=== PATIENT | male | born 1950 | race Caucasian/White ===

== ENCOUNTER → 2018-12-19 10:12 | Outpatient (CLI) | payer MEDICARE, OTHER, SELFPAY ==
--- NOTE | 2018-12-19 | DI.NM.S_ITS ---
PROCEDURE: NM BONE SCAN WHOLE BODY RADIOPHARMACEUTICAL: 19.9 mCi Tc-99m MDP IV. INDICATIONS: prostate cancer TECHNIQUE: Delayed whole-body scintigrams were obtained approximately 3-4 hours after intravenous injection of radiotracer. Anterior and posterior views were acquired from vertex to feet. Additional left and right oblique views of the pelvis were obtained. COMPARISON: [facility], CT, CT CHEST ABD PEL W CON, 12/19/2018, 11:30. FINDINGS: There is increased uptake in the left anterolateral aspect of the ninth rib, possibly posttraumatic. There are foci of increased uptake in cervical, thoracic and lumbar spine with distribution indistinguishable from degenerative disc and facet disease; early metastasis to spine could be obscured by degenerative changes. No lesions are identified in skull, sternum, clavicles, scapulae, bony pelvis, and visualized shafts of the long bones. There are foci of increased periarticular activity involving shoulders, sternoclavicular joints, elbows, wrists, hands, hips, SI joints, ankles and feet, compatible with degenerative/arthritic changes. IMPRESSION: 1. No definitive scintigraphic findings to suggest osseous metastasis. 2. Increased uptake in the left ninth rib anterolaterally is most likely due to trauma. Recommend clinical correlation and followup x-ray if clinically indicated. 3. Foci of increased uptake in cervical, thoracic and lumbar spine with distribution indistinguishable from degenerative disc and facet disease. Recommend clinical and radiographic correlation. Dictated by: Giana Steward M.D. on 12/20/2018 at 12:07 Approved by: Giana Steward M.D. on 12/20/2018 at 13:44
--- NOTE | 2018-12-19 | DI.CT.S_ITS ---
PROCEDURE: CT CHEST ABD PEL W CON INDICATIONS: Staging prostate cancer TECHNIQUE: After the administration of oral and intravenous contrast, 5 mm thick sections acquired from the lung apices to the symphysis. 5 mm coronal and sagittal reformats were performed, with additional 7 mm coronal MIP reformats through the lungs. For radiation dose reduction, the following was used: automated exposure control, adjustment of mA and/or kV according to patient size. COMPARISON: None. FINDINGS: Image quality: Excellent. CHEST: Lungs and pleura: No acute airspace opacities. No pleural effusions or pneumothorax. Central and peripheral airways appear patent and normal in caliber. Mediastinum: Heart size is normal. No pericardial effusion. Scattered atherosclerotic calcifications of the coronary arteries are noted. No mediastinal or hilar adenopathy by size criteria. Thoracic aorta and central pulmonary arteries are normal in size. Esophagus is normal in caliber. No hiatal hernia. Chest wall: No axillary or supraclavicular adenopathy by size criteria. Thyroid gland is normal in appearance. ABDOMEN: Solid organs: Liver is normal in size and enhancement. Gallbladder is unremarkable.. Biliary system is non dilated. Pancreas enhances normally. Spleen is normal in size and enhancement. No adrenal nodules. Kidneys demonstrate normal size and enhancement, without hydronephrosis. Peritoneum and bowel: Bowel loops demonstrate normal wall thickness and caliber. No free fluid or air. Scattered colonic diverticula without acute diverticulitis. Nodes and vessels: No retroperitoneal or mesenteric adenopathy by size criteria. Aorta and inferior vena cava are normal in size. Miscellaneous: No ventral hernias. PELVIS: Genitourinary: Bladder wall thickness is normal. The prostate gland is not definitively visualized and presumably surgically removed. Recommend correlation with past surgical history. No pelvic wall adenopathy. A few scattered pericolonic lymph nodes are seen in the left lower pelvis. These are likely related to adjacent colonic diverticula. No acute diverticulitis. Miscellaneous: No inguinal hernias or adenopathy. Bones: There is a small 3 mm rounded focus of sclerosis involving the posterior left fourth rib as well as several rounded, 2-3 mm sclerotic foci identified in the left posterior T12 vertebral body, left lateral L1 vertebral body, right central L2 vertebral body, right anterolateral L4 vertebral body, and left lateral L5 vertebral body. There is also a 4 mm oval, focal sclerotic lesion over the medial left ilium. As well as a right acetabular roof. These are nonspecific and may represent bone islands. No suspicious lytic bony lesions. No other areas of suspicious sclerotic lesions. No acute vertebral body compression fractures. IMPRESSION: 1. Multiple 2-3 mm round, sclerotic foci identified in the lumbar spine, T12 vertebral body, posterior left fourth rib, right acetabular roof, and medial left ilium. These are likely bone islands; however, osseous metastases not completely excluded. Recommend correlation with nuclear medicine bone scan obtained same day (images from that study are not available for review during interpretation of this study). 2. Colonic diverticulosis without acute diverticulitis. Several pericolonic lymph nodes are noted in the abdomen and left lower abdomen/pelvis likely related to diverticular disease and not related to pelvic sidewall adenopathy. These are more notable for number rather than size and likely reactive in etiology. 3. No acute abnormalities identified in the chest, abdomen, or pelvis. Dictated by: Irving Zaragoza M.D. on 12/19/2018 at 17:07 Approved by: Irving Zaragoza M.D. on 12/19/2018 at 17:44
[2018-12-19 10:43] LABS: Estimated Glomerular Filt Rate > 60.0 mL/min (>60)
== END ==
PROVIDERS: Visit Provider Internal Medicine Medical Oncology
DX: C61 Malignant neoplasm of prostate (principal); K57.90 Diverticulosis of intestine, part unspecified, without perforation or abscess without bleeding; I25.10 Atherosclerotic heart disease of native coronary artery without angina pectoris
CPT/HCPCS: 36415; 71260; 74177; 78306; 82565; A9503; Q9967

== ENCOUNTER → 2020-04-06 08:52 | Outpatient (CLI) | payer MEDICARE, OTHER, SELFPAY ==
--- NOTE | 2020-04-06 | DI.NM.S_ITS ---
PROCEDURE: [place] BONE SCAN WHOLE BODY RADIOPHARMACEUTICAL: 21.4 mCi Tc-99m MDP IV. INDICATIONS: Malignant neoplasm of prostate TECHNIQUE: Delayed whole-body scintigrams were obtained approximately 3-4 hours after intravenous injection of radiotracer. Anterior and posterior views were acquired from vertex to feet. COMPARISON: Outside Facility, RG, CT THORAX/ABDOMEN/PELVIS WITH CONTRAST, 07/06/2017, 11:46. [facility], CT, CT ABDOMEN PELVIS W CON, 04/06/2020, 10:22. Outside Facility, RG, NM BONE SCAN WHOLE BODY, 07/06/2017, 12:56. [facility], NH, NH BONE SCAN WHOLE BODY, 12/19/2018, 13:57. [facility], CR, XR CHEST 2VW, 02/26/2016, 14:47. FINDINGS: Again noted is a focus of increased uptake involving the left 10th rib, unchanged from 07/06/2017, most likely related to old fracture. Increased uptake in the maxilla is most likely related to dental disease. No lesions are identified in skull, sternum, clavicles, scapulae, bony pelvis and visualized shafts of the long bones. There is foci of increased uptake in cervical, thoracic and lumbar spine with distribution indistinguishable from degenerative disc and facet disease; early metastasis to spine could be obscured by degenerative changes. There are foci of increased periarticular activity involving shoulders, hips, right ankle and foot, compatible with degenerative/arthritic changes. IMPRESSION: Stable bone scan. No definitive scintigraphic findings for osseous metastases. Degenerative changes as described. Dictated by: Giana Steward M.D. on 04/06/2020 at 14:57 Approved by: Giana Steward M.D. on 04/06/2020 at 18:01
--- NOTE | 2020-04-06 | DI.CT.S_ITS ---
PROCEDURE: CT ABDOMEN PELVIS W CON INDICATIONS: Malignant neoplasm of prostate TECHNIQUE: After the administration of oral and intravenous contrast, 5 mm thick sections acquired from the diaphragms to the symphysis. 5 mm thick coronal and sagittal reformats were performed. For radiation dose reduction, the following was used: automated exposure control, adjustment of mA and/or kV according to patient size. COMPARISON: [facility], CT, CT CHEST ABD PEL W CON, 12/19/2018, 11:30. FINDINGS: Image quality: Excellent. ABDOMEN: Lung bases: Lung bases are clear. Heart size is normal. Solid organs: Liver is normal in size and enhancement. Gallbladder is within normal limits. Biliary system is non-dilated. Pancreas enhances normally. Spleen is normal in size and enhancement. No adrenal nodules. Kidneys are normal in size and enhancement, without hydronephrosis. Peritoneum and bowel: Stomach and small bowel is within normal limits. Colon is nondistended. Appendix is not seen. There is diverticulosis of the descending and sigmoid colon. There is thickening of the distal descending and proximal sigmoid colon. No free fluid or air. Nodes and vessels: No retroperitoneal or mesenteric adenopathy. Aorta and inferior vena cava are normal in caliber. Miscellaneous: No ventral hernias. PELVIS: Genitourinary: Bladder wall thickness is normal. Miscellaneous: No inguinal hernias or adenopathy. Bones: No suspicious bony lesions. No change in small, subcentimeter sclerotic foci within the lumbar spine and pelvis. No vertebral body compression fractures. IMPRESSION: 1. Thickening of the descending and sigmoid colon. This could be further assessed with colonoscopy, if clinically indicated. 2. No evidence of lymphadenopathy. Dictated by: Babatunde Braga M.D. on 04/06/2020 at 11:18 Approved by: Babatunde Braga M.D. on 04/06/2020 at 11:21
[2020-04-06 10:17] LABS: BUN Creatinine Ratio 21.8 (6-22); Blood Urea Nitrogen 17 mg/dL (9-20); Carbon Dioxide 36 mmol/L (22-32); Chloride 96 mmol/L (98-107); Estimated Glomerular Filt Rate > 60.0 mL/min (>60); Glucose 112 mg/dL (80-110); HEMOLYSIS < 15 (0-50); Potassium 4.1 mmol/L (3.4-5.1); Sodium 135 mmol/L (137-145)
== END ==
PROVIDERS: Referring Provider Internal Medicine Medical Oncology; Visit Provider Internal Medicine Medical Oncology
DX: C61 Malignant neoplasm of prostate (principal); K57.30 Diverticulosis of large intestine without perforation or abscess without bleeding
CPT/HCPCS: 36415; 74177; 78306; 80048; 82565; 84520; A9503

== ENCOUNTER → 2020-08-25 09:41 | Outpatient (CLI) | payer MEDICARE, OTHER, SELFPAY | PROVIDERS: PCP Physician Assistant; Referring Provider Nurse Practitioner Gerontology; Visit Provider Nurse Practitioner Gerontology | DX: M81.8 Other osteoporosis without current pathological fracture (principal); T38.7X5A Adverse effect of androgens and anabolic congeners, initial encounter; Z85.46 Personal history of malignant neoplasm of prostate | CPT/HCPCS: 77080 ==